=== PATIENT | female | born 1965 | race Caucasian/White ===

== ENCOUNTER 2021-07-28 07:59 | Outpatient (REF) | payer OTHER, SELFPAY ==
--- NOTE | 2021-07-28 08:53 | MHC.AU.HAS ---
Hearing Aid Evaluation Date of Visit: 07/28/21 Historical Information: Description of Hearing: Right: Mild/moderate conductive hearing loss Left: Normal from 250-3000 Hz, mild at 4770-0561 Hz Summary: Patient is followed by ENT, Dr. Piña. 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 It has caused a conductive hearing loss, aural pressure, and tinnitus. She has noticed the hearing loss impacting her daily communication. She has difficulty hearing in most conversations, as well as difficulty on the phone, since she always used her right ear on the phone prior to the hearing loss. Patient has a complex medical history including Myasthenia Gravis, heart failure, pulmonary embolism, and pulmonary hypertension. She uses a nasal cannula for oxygen supplementation. Hearing aid options were discussed. It was decided to try an ITC style hearing aid so that it would not interfere with her oxygen tubes and glasses. Patient currently has a baseclick 8 phone. Hearing Aid Prescription: Based on the individual?s shared listening needs, communication environments, dexterity, desire for connectivity, and personal preferences, the following prescription for amplification has been made: Right ear: Math Specialist: [employer] Model: Doorbot M70-312 ITC Battery Size: 312 Color: [place]acon Escalator Installer: Moderate Action Taken/Action Needed: Earmold impression taken of the right ear without complication. Prior authorization will be requested from [facility]. Upon approval, the instrument will be ordered. Patient will be contacted to schedule a hearing aid fitting when all materials have arrived. Primary Diagnosis: H90.11 ConductiveHL Unilateral Right Ear, W/Unrestricted Contralateral Signature: Provider: Iraida Miramontes, NIKUNJ-A
== END 2021-07-28 08:00 | disposition home or self-care (01) ==
LOC: HO.HAP 07:59
PROVIDERS: PCP Internal Medicine; Visit Provider Otolaryngology
DX: Z46.1 Encounter for fitting and adjustment of hearing aid (principal); H90.11 Conductive hearing loss, unilateral, right ear, with unrestricted hearing on the contralateral side
CPT/HCPCS: 92590; V5275

== ENCOUNTER 2021-08-25 07:57 | Outpatient (REF) | payer OTHER, SELFPAY ==
--- NOTE | 2021-08-25 08:43 | MHC.AU.HAR ---
Hearing Instrument Fitting- Adult- Right Ear Date of Visit: 08/25/21 Hearing Instruments Dispensed: Right Ear: Die Keeper: [employer] Model: [employer] M70-312 [place] Serial Number: [id number] Repair Warranty: 09/06/2024 Loss and Damage Warranty: 09/06/2024 Service Plan: 08/25/2022 Battery Size: 312 Color: [place] Upholstery Cleaner: Moderate Type of Wax Guard: CeruStop Summary of Fitting: Target gain set to 90%. Feedback municipal services manager run. Verifit performed and levels adjusted to better reach targets. Patient reports her ear was recently drained by ENT. She has been experiencing some drainage since then. Otoscopy performed- slight wetness noted in back of canal, no significant discharge at this time. Advised patient that if her ear is actively draining, she should not wear the hearing aid until the drainage has stopped. She also reports she is scheduled to have a surgery on her ear in August. Patient was pleased with the sound of the instrument, reporting it was comfortable and clear. Patient did not feel additional adjustments were needed. Patient did not want the hearing aid paired to her phone at this time. Hearing aid care and maintenance were discussed and practiced. Recommendations: Patient will call if follow-up is needed. Diagnosis Code(s): Primary Diagnosis: H90.11 ConductiveHL Unilateral Right Ear, W/Unrestricted Contralateral Signature: Provider: Iraida Miramontes, [facility]
== END 2021-08-25 07:58 | disposition home or self-care (01) ==
LOC: HO.HAP 07:57
PROVIDERS: Visit Provider Otolaryngology
DX: Z46.1 Encounter for fitting and adjustment of hearing aid (principal); H90.11 Conductive hearing loss, unilateral, right ear, with unrestricted hearing on the contralateral side
CPT/HCPCS: V5011; V5020; V5241; V5256; V5266